=== PATIENT | male | born 2000 | race Caucasian/White ===

== ENCOUNTER 2023-01-21 18:53 | Emergency (ER) | payer OTHER ==
[~2023-01-21] VITALS: Ht 170.2 cm; Wt 85.7 kg
[2023-01-21 19:18] VITALS: BP 146/84
--- NOTE | 2023-01-21 19:25 | NUR ---
SHAUN GONZALEZ examining patient.
[2023-01-21] MEDS ORDERED: KETOROLAC 30 MG/ML VIAL IM ONE (20:05)
--- NOTE | 2023-01-21 20:14 | NUR ---
PT TAKEN TO XRAY
[2023-01-21] MEDS ORDERED: LID5T TP (20:35)
[2023-01-21] MEDS ORDERED: IBUP-2213 PO (20:35)
[2023-01-21 20:53] VITALS: BP 131/84
--- NOTE | 2023-01-21 20:53 | NUR ---
Patient discharged with v/s stable. Written and verbal after care instructions given and explained. Patient alert, oriented and verbalized understanding of instructions. Ambulatory with steady gait. All questions addressed prior to discharge. ID band removed. Patient advised to follow up with PMD. Rx of Lidocaine and Ibuprofen given. Patient educated on indication of medication including possible reaction and side effects. Opportunity to ask questions provided and answered.
[2023-01-22] MEDS ORDERED: LID5T TP (16:49)
[2023-01-22] MEDS ORDERED: IBUP-2213 PO (16:49)
== END 2023-01-21 20:53 | disposition home or self-care (01) ==
LOC: MED 18:53
DX: S29.011A Strain of muscle and tendon of front wall of thorax, initial encounter (principal); R03.0 Elevated blood-pressure reading, without diagnosis of hypertension; X58.XXXA Exposure to other specified factors, initial encounter; Y93.89 Activity, other specified; Y92.89 Other specified places as the place of occurrence of the external cause; Y99.8 Other external cause status
CPT/HCPCS: 71101; 96372; 99283; J1885